=== PATIENT | male | born 1950 | race Caucasian/White ===

== ENCOUNTER 2016-12-22 13:33 | Inpatient (IN) | payer BC, OTHER ==
[~2016-12-22] VITALS: Ht 188 cm; Wt 92.8 kg
[2016-12-22 15:01] LABS: Basophils # (auto) 0 uL; Basophils % (auto) 0.2 % (0.0-2.0); Eosinophils # (auto) 0 uL; Eosinophils % (auto) 0.1 % (0.0-7.0); Hematocrit 39.1 % (41.0-53.0); Hemoglobin 12.6 g/dL (13.5-17.5); Lymphocytes # (auto) 0.9 uL; Lymphocytes % (auto) 4.8 % (10.0-50.0); Mean Corpuscular Hemoglobin 28.8 pg (28.0-32.0); Mean Corpuscular Hgb Conc. 32.2 g/dL (32.0-36.0); Mean Corpuscular Volume 89.5 fL (80.0-100.0); Mean Platelet Volume 6.3 fL (6.9-10.8); Monocytes # (auto) 2.4 uL; Neutrophils # (auto) 14.9 uL; Neutrophils % (auto) 81.9 % (37.0-80.0); Platelet Count (auto) 328 10^3/uL (140-450); Red Cell Distribution Width 19.4 % (11.8-14.3); White Blood Cell 18.2 10^3/uL (4.4-10.8)
[2016-12-22 15:25] LABS: Albumin 2.1 g/dL (3.4-5.0); Alkaline Phosphatase 72 U/L (45-117); Anion Gap 7 (5-15); Aspartate Aminotransferase 19 U/L (15-37); BUN/Creatinine Ratio 17.6; Bilirubin, Total 0.6 mg/dL (0.2-1.0); Blood Urea Nitrogen 16 mg/dL (7-18); Calcium 8.1 mg/dL (8.5-10.1); Carbon Dioxide 27 mmol/L (21-32); Chloride 96 mmol/L (98-107); GFR African American 108 mL/min; GFR Non-African American 89 mL/min; Glucose 111 mg/dL (74-106); Magnesium 2.3 mg/dL (1.6-2.6); Potassium 4.6 mmol/L (3.5-5.1); Sodium 130 mmol/L (136-145); Total Protein 6.4 g/dL (6.4-8.2)
[2016-12-22 15:26] LABS: B-Type Natriuretic Peptide 59.36 pg/mL (0-100)
[2016-12-22 15:28] LABS: Temperature: 21.9 C (20.0-25.0)
[2016-12-22 15:52] LABS: INR 1.47 (0.9-1.15); Partial Thromboplastin Time 44.4 sec (22.64-33.71); Prothrombin Time 16.1 sec (9.37-12.3)
[2016-12-22] MEDS ORDERED: SODIUM CHLORIDE 0.9% 1,000 ML IV ONE ×2 (16:45→17:00)
[2016-12-22] MEDS ORDERED: PROMETHAZINE HCL 25 MG/ML 1ML IV PRN (17:00)
[2016-12-22] MEDS ORDERED: VANCOMYCIN 1GM/250ML D5W 250 ML IV ONE (17:00)
[2016-12-22] MEDS ORDERED: LORazepam 0.5 MG TAB PO PRN (17:00)
[2016-12-22] MEDS ORDERED: TEMAZEPAM 15 MG CAP PO PRN (17:00)
[2016-12-22] MEDS ORDERED: VANCOMYCIN PER PHARMACY 0 MG IV SCH (17:00)
[2016-12-22] MEDS ORDERED: MORPHINE SULF INJ 2 MG/ML SYRINGE 1ML IV PRN ×2 (17:00)
[2016-12-22] MEDS ORDERED: ACETAMINOPHEN 500 MG TAB PO PRN (17:00)
[2016-12-22] MEDS ORDERED: NITROGLYCERIN 0.4 MG SL TAB SL PRN (17:00)
[2016-12-22 17:09] LABS: Urine Bilirubin Negative (Negative); Urine Blood Negative /uL (Negative); Urine Color Yellow (Yellow); Urine Glucose Normal (Normal); Urine Ketone Negative (Negative); Urine Mucus FEW (None Seen); Urine Nitrite Negative (Negative); Urine RBC 1 /hpf (0 - 3)
[2016-12-22] MEDS ORDERED: AZITHROMYCIN 500MG/D5W 250ML 250 ML IV ONE (17:45)
[2016-12-22] MEDS ORDERED: PIPERACILLIN-TAZOB 3.375GM 100 ML IV SCH (18:00)
[2016-12-22] MEDS ORDERED: PIPERACILLIN-TAZOB 3.375GM 100 ML IV ONE (18:00)
[2016-12-22] MEDS: SODIUM CHLORIDE 0.9% 1,000 ML IV SCH (18:30)
[2016-12-22] MEDS: VANCOMYCIN 1,500 MG in D5W 5% 250 ML IV SCH (19:00)
[2016-12-22] MEDS ORDERED: RIVAROXABAN 20 MG TAB PO SCH (19:08)
[2016-12-22 20:20] LABS: Anisocytosis Slight; Platelet Estimate Adequate
[2016-12-22] MEDS: ALBUTEROL SULF 2.5 MG/0.5ML(0.5%) NEB SOLN NEB SCH (20:20)
[2016-12-22] MEDS: IPRATROPIUM BROM 0.5 MG/2.5ML INH SOL NEB SCH ×2 (20:20→21:18)
[2016-12-22] MEDS: ALBUTEROL SULF 2.5 MG/0.5ML(0.5%) NEB SOLN NEB PRN (21:18)
[2016-12-22 23:44] VITALS: BP 95/57
[2016-12-23] MEDS: ALBUTEROL SULF 2.5 MG/0.5ML(0.5%) NEB SOLN NEB SCH ×4 (00:35→19:27)
[2016-12-23] MEDS: IPRATROPIUM BROM 0.5 MG/2.5ML INH SOL NEB SCH ×4 (00:35→19:28)
[2016-12-23] MEDS: SODIUM CHLORIDE 0.9% 1,000 ML IV SCH (02:54)
[2016-12-23 05:44] LABS: Basophils # (auto) 0 uL; Basophils % (auto) 0.1 % (0.0-2.0); Eosinophils # (auto) 0.1 uL; Eosinophils % (auto) 0.7 % (0.0-7.0); Hematocrit 35.4 % (41.0-53.0); Hemoglobin 11.6 g/dL (13.5-17.5); Lymphocytes % (auto) 6.6 % (10.0-50.0); Mean Corpuscular Hemoglobin 29.2 pg (28.0-32.0); Mean Corpuscular Hgb Conc. 32.8 g/dL (32.0-36.0); Mean Corpuscular Volume 88.8 fL (80.0-100.0); Mean Platelet Volume 6.2 fL (6.9-10.8); Monocytes # (auto) 1.9 uL; Monocytes % (auto) 12.9 % (0.0-12.0); Neutrophils # (auto) 11.8 uL; Neutrophils % (auto) 79.7 % (37.0-80.0); Platelet Count (auto) 316 10^3/uL (140-450); Red Cell Distribution Width 19.6 % (11.8-14.3); White Blood Cell 14.8 10^3/uL (4.4-10.8)
[2016-12-23 06:01] LABS: Albumin 1.8 g/dL (3.4-5.0); Calcium 8.1 mg/dL (8.5-10.1); Potassium 4.4 mmol/L (3.5-5.1)
[2016-12-23] MEDS: PIPERACILLIN-TAZOB 3.375GM 100 ML IV SCH ×3 (06:12→21:56)
[2016-12-23 06:14] LABS: Bilirubin, Total 0.5 mg/dL (0.2-1.0); Total Protein 5.9 g/dL (6.4-8.2)
[2016-12-23] MEDS ORDERED: AMIT25TA9 PO (06:43)
[2016-12-23] MEDS ORDERED: CLON1TAB3 PO (06:48)
[2016-12-23] MEDS ORDERED: ESCI20TA51 PO (06:48)
[2016-12-23] MEDS ORDERED: ESOM40CA39 PO (06:48)
[2016-12-23] MEDS ORDERED: MET25T PO (06:48)
[2016-12-23] MEDS ORDERED: LISI-646 PO (06:48)
[2016-12-23] MEDS ORDERED: RIVA20TA PO (06:48)
[2016-12-23] MEDS: VANCOMYCIN 1,500 MG in D5W 5% 250 ML IV SCH ×2 (07:30→18:22)
[2016-12-23] MEDS ORDERED: ENOXAPARIN SOD 40 MG/0.4 ML SYRINGE SC SCH (10:00)
[2016-12-23] MEDS: PANTOPRAZOLE 40 MG TAB PO SCH (10:00)
[2016-12-23 10:41] VITALS: BP 105/60
[2016-12-23] MEDS ORDERED: PNEUMOCOCCAL VACC POLYS 25 MCG/0.5 ML VIAL IM ONE (11:00)
[2016-12-23] MEDS ORDERED: SODIUM CHLORIDE 0.9% 1,000 ML IV ONE (11:00)
[2016-12-23] MEDS ORDERED: ENOXAPARIN SOD 100 MG/1 ML SYRINGE SC ONE (11:00)
[2016-12-23] MEDS ORDERED: guaiFENesin-COD 10 ML UD PO PRN (11:00)
[2016-12-23] MEDS ORDERED: guaiFENesin-COD 10 ML UD PO ONE (11:00)
[2016-12-23 11:15] VITALS: BP 105/60
[2016-12-23] MEDS ORDERED: LISINOPRIL 20 MG TAB PO ONE (11:15)
[2016-12-23] MEDS ORDERED: METOPROLOL SUCCINATE XL 50 MG TAB PO ONE (11:15)
[2016-12-23] MEDS ORDERED: IOHEXOL 350 MG/ML 100ML IJ ONE (11:25)
[2016-12-23] MEDS: guaiFENesin-DEXTROMETHORPHAN 5ML SYR GT PRN ×2 (12:16→18:36)
[2016-12-23] MEDS: AZITHROMYCIN 500MG/D5W 250ML 250 ML IV SCH (12:19)
[2016-12-23 17:01] VITALS: BP 119/64
[2016-12-23] MEDS: HYDROcodone-ACET 5/325MG TAB PO PRN (18:38)
[2016-12-23] MEDS: DOCUSATE SOD 100 MG CAP PO SCH (21:55)
[2016-12-23] MEDS: ENOXAPARIN SOD 100 MG/1 ML SYRINGE SC SCH (21:55)
[2016-12-23 22:00] VITALS: BP 105/70
[2016-12-23] MEDS: AMITRIPTYLINE HCL 25 MG TAB PO SCH (22:45)
[2016-12-23] MEDS: clonazePAM 0.5 MG TAB PO SCH (22:46)
[2016-12-24] MEDS: guaiFENesin-DEXTROMETHORPHAN 5ML SYR GT PRN (03:25)
[2016-12-24] MEDS: PIPERACILLIN-TAZOB 3.375GM 100 ML IV SCH ×4 (03:25→21:17)
[2016-12-24 05:00] VITALS: BP 113/75
[2016-12-24] MEDS: ALBUTEROL SULF 2.5 MG/0.5ML(0.5%) NEB SOLN NEB SCH ×4 (06:00→19:16)
[2016-12-24] MEDS: IPRATROPIUM BROM 0.5 MG/2.5ML INH SOL NEB SCH ×4 (06:00→19:16)
[2016-12-24 06:34] LABS: Basophils # (auto) 0 uL; Basophils % (auto) 0.3 % (0.0-2.0); Eosinophils # (auto) 0.3 uL; Eosinophils % (auto) 2.2 % (0.0-7.0); Hematocrit 34.5 % (41.0-53.0); Hemoglobin 11.2 g/dL (13.5-17.5); Lymphocytes # (auto) 0.8 uL; Lymphocytes % (auto) 6.2 % (10.0-50.0); Mean Corpuscular Hemoglobin 29.1 pg (28.0-32.0); Mean Corpuscular Hgb Conc. 32.4 g/dL (32.0-36.0); Mean Corpuscular Volume 89.6 fL (80.0-100.0); Mean Platelet Volume 6.4 fL (6.9-10.8); Monocytes # (auto) 1.5 uL; Monocytes % (auto) 11.7 % (0.0-12.0); Neutrophils # (auto) 10.2 uL; Neutrophils % (auto) 79.6 % (37.0-80.0); Platelet Count (auto) 320 10^3/uL (140-450); Red Cell Distribution Width 19.6 % (11.8-14.3); White Blood Cell 12.8 10^3/uL (4.4-10.8)
[2016-12-24 06:52] LABS: BUN/Creatinine Ratio 13.6; Calcium 7.9 mg/dL (8.5-10.1); Potassium 3.6 mmol/L (3.5-5.1)
[2016-12-24] MEDS: VANCOMYCIN 1,500 MG in D5W 5% 250 ML IV SCH ×2 (08:04→18:36)
[2016-12-24 08:57] VITALS: BP 115/71
[2016-12-24] MEDS: LISINOPRIL 20 MG TAB PO SCH (10:00)
[2016-12-24] MEDS: ENOXAPARIN SOD 100 MG/1 ML SYRINGE SC SCH ×2 (10:00→21:52)
[2016-12-24] MEDS: DOCUSATE SOD 100 MG CAP PO SCH ×2 (10:00→21:52)
[2016-12-24] MEDS: AZITHROMYCIN 500MG/D5W 250ML 250 ML IV SCH (10:00)
[2016-12-24] MEDS: clonazePAM 0.5 MG TAB PO SCH ×2 (10:00→21:52)
[2016-12-24] MEDS: PANTOPRAZOLE 40 MG TAB PO SCH (10:00)
[2016-12-24] MEDS: CITALOPRAM HYDROBR 20 MG TAB PO SCH (10:00)
[2016-12-24] MEDS: METOPROLOL SUCCINATE XL 50 MG TAB PO SCH (10:00)
[2016-12-24 10:23] LABS: Anisocytosis Slight; Platelet Estimate Adequate
[2016-12-24 12:42] VITALS: BP 124/75
[2016-12-24] MEDS ORDERED: ACETYLCYSTEINE 10 %(100MG/ML) SOL 4ML NEB SCH (14:00)
[2016-12-24 16:17] VITALS: BP 114/72
[2016-12-24] MEDS: ACETYLCYSTEINE 10 %(100MG/ML) SOL 4ML NEB SCH (19:16)
[2016-12-24] MEDS: AMITRIPTYLINE HCL 25 MG TAB PO SCH (21:52)
[2016-12-24 22:00] VITALS: BP 107/63
[2016-12-25] MEDS: ALBUTEROL SULF 2.5 MG/0.5ML(0.5%) NEB SOLN NEB SCH ×4 (00:07→19:30)
[2016-12-25] MEDS: IPRATROPIUM BROM 0.5 MG/2.5ML INH SOL NEB SCH ×4 (00:07→19:30)
[2016-12-25] MEDS: ACETYLCYSTEINE 10 %(100MG/ML) SOL 4ML NEB SCH ×4 (00:07→19:30)
[2016-12-25] MEDS: PIPERACILLIN-TAZOB 3.375GM 100 ML IV SCH ×4 (03:27→21:16)
[2016-12-25 05:00] VITALS: BP 136/62
[2016-12-25 05:55] LABS: Basophils # (auto) 0 uL; Basophils % (auto) 0.3 % (0.0-2.0); Eosinophils # (auto) 0.3 uL; Eosinophils % (auto) 2.7 % (0.0-7.0); Hematocrit 33.7 % (41.0-53.0); Hemoglobin 11.3 g/dL (13.5-17.5); Lymphocytes # (auto) 0.9 uL; Lymphocytes % (auto) 9.1 % (10.0-50.0); Mean Corpuscular Hgb Conc. 33.5 g/dL (32.0-36.0); Mean Corpuscular Volume 89.5 fL (80.0-100.0); Mean Platelet Volume 6.4 fL (6.9-10.8); Monocytes # (auto) 1.2 uL; Monocytes % (auto) 11.6 % (0.0-12.0); Neutrophils # (auto) 7.9 uL; Neutrophils % (auto) 76.3 % (37.0-80.0); Nucleated Red Blood Cells % 0.1 %; Platelet Count (auto) 351 10^3/uL (140-450); Red Cell Distribution Width 19.6 % (11.8-14.3); White Blood Cell 10.4 10^3/uL (4.4-10.8)
[2016-12-25 06:22] LABS: Calcium 8.3 mg/dL (8.5-10.1); Potassium 4.3 mmol/L (3.5-5.1)
[2016-12-25] MEDS: VANCOMYCIN 1,500 MG in D5W 5% 250 ML IV SCH ×2 (06:25→19:00)
[2016-12-25 06:26] LABS: BUN/Creatinine Ratio 11.8
[2016-12-25 08:39] LABS: Anisocytosis Slight; Platelet Estimate Adequate
[2016-12-25 09:00] VITALS: BP 115/69
[2016-12-25] MEDS: LISINOPRIL 20 MG TAB PO SCH (10:00)
[2016-12-25] MEDS: ENOXAPARIN SOD 100 MG/1 ML SYRINGE SC SCH ×2 (10:00→21:48)
[2016-12-25] MEDS: DOCUSATE SOD 100 MG CAP PO SCH ×2 (10:00→21:46)
[2016-12-25] MEDS: CITALOPRAM HYDROBR 20 MG TAB PO SCH (10:00)
[2016-12-25] MEDS: METOPROLOL SUCCINATE XL 50 MG TAB PO SCH (10:00)
[2016-12-25] MEDS: clonazePAM 0.5 MG TAB PO SCH ×2 (10:00→21:47)
[2016-12-25] MEDS: PANTOPRAZOLE 40 MG TAB PO SCH (10:00)
[2016-12-25] MEDS: HYDROcodone-ACET 5/325MG TAB PO PRN (12:30)
[2016-12-25 13:00] VITALS: BP 118/65
[2016-12-25 17:04] VITALS: BP 107/66
[2016-12-25] MEDS: guaiFENesin-COD 10 ML UD PO PRN (20:31)
[2016-12-25] MEDS: AMITRIPTYLINE HCL 25 MG TAB PO SCH (21:47)
[2016-12-25 22:00] VITALS: BP 124/67
[2016-12-26] MEDS: guaiFENesin-COD 10 ML UD PO PRN (00:32)
[2016-12-26] MEDS: ALBUTEROL SULF 2.5 MG/0.5ML(0.5%) NEB SOLN NEB SCH ×4 (00:40→18:50)
[2016-12-26] MEDS: IPRATROPIUM BROM 0.5 MG/2.5ML INH SOL NEB SCH ×4 (00:40→18:51)
[2016-12-26] MEDS: ACETYLCYSTEINE 10 %(100MG/ML) SOL 4ML NEB SCH ×4 (00:40→18:54)
[2016-12-26] MEDS: PIPERACILLIN-TAZOB 3.375GM 100 ML IV SCH ×4 (03:32→21:00)
[2016-12-26] MEDS: HYDROcodone-ACET 5/325MG TAB PO PRN ×2 (03:42→10:49)
[2016-12-26 03:45] VITALS: BP 124/67
[2016-12-26 05:05] VITALS: BP 115/62
[2016-12-26 06:38] LABS: Basophils # (auto) 0.1 uL; Basophils % (auto) 0.7 % (0.0-2.0); Eosinophils # (auto) 0.3 uL; Hematocrit 34.3 % (41.0-53.0); Hemoglobin 11.1 g/dL (13.5-17.5); Lymphocytes # (auto) 0.8 uL; Lymphocytes % (auto) 7.5 % (10.0-50.0); Mean Corpuscular Hemoglobin 28.7 pg (28.0-32.0); Mean Corpuscular Hgb Conc. 32.4 g/dL (32.0-36.0); Mean Corpuscular Volume 88.6 fL (80.0-100.0); Mean Platelet Volume 6.3 fL (6.9-10.8); Monocytes # (auto) 1.1 uL; Monocytes % (auto) 9.7 % (0.0-12.0); Neutrophils # (auto) 8.9 uL; Neutrophils % (auto) 79.1 % (37.0-80.0); Nucleated Red Blood Cells % 0.1 %; Platelet Count (auto) 389 10^3/uL (140-450); Red Cell Distribution Width 19.2 % (11.8-14.3); White Blood Cell 11.3 10^3/uL (4.4-10.8)
[2016-12-26] MEDS: VANCOMYCIN 1,500 MG in D5W 5% 250 ML IV SCH ×2 (06:41→19:00)
[2016-12-26 06:48] LABS: Potassium 3.8 mmol/L (3.5-5.1)
[2016-12-26 06:55] LABS: BUN/Creatinine Ratio 14.6; Calcium 8.6 mg/dL (8.5-10.1)
[2016-12-26 07:21] VITALS: BP 145/84
[2016-12-26] MEDS: clonazePAM 0.5 MG TAB PO SCH ×2 (10:00→22:00)
[2016-12-26] MEDS: ENOXAPARIN SOD 100 MG/1 ML SYRINGE SC SCH ×2 (10:00→22:00)
[2016-12-26] MEDS: CITALOPRAM HYDROBR 20 MG TAB PO SCH (10:00)
[2016-12-26] MEDS: LISINOPRIL 20 MG TAB PO SCH (10:00)
[2016-12-26] MEDS: PANTOPRAZOLE 40 MG TAB PO SCH (10:00)
[2016-12-26] MEDS: DOCUSATE SOD 100 MG CAP PO SCH ×2 (10:00→22:00)
[2016-12-26] MEDS: METOPROLOL SUCCINATE XL 50 MG TAB PO SCH (10:00)
[2016-12-26 10:14] LABS: Burr Cells FEW; Platelet Estimate Adequate
[2016-12-26 10:15] LABS: Anisocytosis Slight; Polychromasia Slight
[2016-12-26 11:53] VITALS: BP 133/73
[2016-12-26 17:13] VITALS: BP 124/73
[2016-12-26 22:00] VITALS: BP 127/71
[2016-12-26] MEDS: AMITRIPTYLINE HCL 25 MG TAB PO SCH (22:00)
[2016-12-27] MEDS: ALBUTEROL SULF 2.5 MG/0.5ML(0.5%) NEB SOLN NEB SCH ×4 (00:40→18:35)
[2016-12-27] MEDS: IPRATROPIUM BROM 0.5 MG/2.5ML INH SOL NEB SCH ×4 (00:40→18:35)
[2016-12-27] MEDS: PIPERACILLIN-TAZOB 3.375GM 100 ML IV SCH ×3 (02:52→16:02)
[2016-12-27] MEDS: ALBUTEROL SULF 2.5 MG/0.5ML(0.5%) NEB SOLN NEB PRN (04:49)
[2016-12-27 05:00] VITALS: BP 133/75
[2016-12-27] MEDS: VANCOMYCIN 1,500 MG in D5W 5% 250 ML IV SCH (06:20)
[2016-12-27] MEDS: ACETYLCYSTEINE 10 %(100MG/ML) SOL 4ML NEB SCH ×2 (06:55)
[2016-12-27] MEDS ORDERED: LORazepam 2MG/ML-1ML VIAL IV PRN (08:45)
[2016-12-27] MEDS ORDERED: MORPHINE SULF INJ 2 MG/ML SYRINGE 1ML IV PRN (08:45)
[2016-12-27] MEDS ORDERED: MORPHINE SULF INJ 2 MG/ML SYRINGE 1ML IV ONE (08:45)
[2016-12-27 09:00] VITALS: BP 111/56
[2016-12-27] MEDS: DOCUSATE SOD 100 MG CAP PO SCH ×2 (09:06→22:17)
[2016-12-27] MEDS: PANTOPRAZOLE 40 MG TAB PO SCH (09:08)
[2016-12-27] MEDS: METOPROLOL SUCCINATE XL 50 MG TAB PO SCH (09:08)
[2016-12-27] MEDS: clonazePAM 0.5 MG TAB PO SCH ×2 (09:08→22:16)
[2016-12-27] MEDS: CITALOPRAM HYDROBR 20 MG TAB PO SCH (09:09)
[2016-12-27] MEDS: LISINOPRIL 20 MG TAB PO SCH (09:09)
[2016-12-27] MEDS: ENOXAPARIN SOD 100 MG/1 ML SYRINGE SC SCH ×2 (09:10→22:17)
[2016-12-27 13:00] VITALS: BP 123/66
[2016-12-27] MEDS: MORPHINE SULF INJ 2 MG/ML SYRINGE 1ML IV PRN ×3 (14:08→22:17)
[2016-12-27 17:00] VITALS: BP 123/50
[2016-12-27] MEDS ORDERED: LEVOFLOXACIN 750MG 150 ML IV ONE (17:45)
[2016-12-27] MEDS: PRO-STAT 64 30ML PO SCH (18:00)
[2016-12-27] MEDS: guaiFENesin-COD 10 ML UD PO PRN (18:36)
[2016-12-27 22:00] VITALS: BP 117/69
[2016-12-27] MEDS: AMITRIPTYLINE HCL 25 MG TAB PO SCH (22:16)
[2016-12-28 04:56] VITALS: BP 111/72
[2016-12-28] MEDS: ALBUTEROL SULF 2.5 MG/0.5ML(0.5%) NEB SOLN NEB SCH ×3 (06:27→12:18)
[2016-12-28] MEDS: IPRATROPIUM BROM 0.5 MG/2.5ML INH SOL NEB SCH ×3 (06:27→12:18)
[2016-12-28] MEDS: PRO-STAT 64 30ML PO SCH (08:00)
[2016-12-28] MEDS: MORPHINE SULF INJ 2 MG/ML SYRINGE 1ML IV PRN ×2 (08:10→12:53)
[2016-12-28 08:30] VITALS: BP 121/84
[2016-12-28] MEDS ORDERED: LEVO750T64 PO (08:55)
[2016-12-28] MEDS: clonazePAM 0.5 MG TAB PO SCH (09:09)
[2016-12-28] MEDS: ENOXAPARIN SOD 100 MG/1 ML SYRINGE SC SCH (09:09)
[2016-12-28] MEDS: DOCUSATE SOD 100 MG CAP PO SCH (09:10)
[2016-12-28] MEDS: LISINOPRIL 20 MG TAB PO SCH (09:10)
[2016-12-28] MEDS: PANTOPRAZOLE 40 MG TAB PO SCH (09:10)
[2016-12-28] MEDS: METOPROLOL SUCCINATE XL 50 MG TAB PO SCH (09:11)
[2016-12-28] MEDS: CITALOPRAM HYDROBR 20 MG TAB PO SCH (09:11)
[2016-12-28] MEDS ORDERED: LEVOFLOXACIN 750MG 150 ML IV SCH (10:00)
[2016-12-28 11:51] VITALS: BP 121/84
[2016-12-28 12:37] VITALS: BP 127/71
== END 2016-12-28 15:00 | disposition hospice, home (50) | DRG 189 ==
LOC: ER 13:33 → TELE 13:34 → TELE-WESTW 12-23 08:01 → WEST WING 12-27 17:07
PROVIDERS: ADMIT Internal Medicine; ATTEND Internal Medicine
DX: J96.00 Acute respiratory failure, unspecified whether with hypoxia or hypercapnia (principal); J18.9 Pneumonia, unspecified organism; C41.9 Malignant neoplasm of bone and articular cartilage, unspecified; I82.402 Acute embolism and thrombosis of unspecified deep veins of left lower extremity; C78.00 Secondary malignant neoplasm of unspecified lung; E87.1 Hypo-osmolality and hyponatremia; J98.11 Atelectasis; I10 Essential (primary) hypertension; Z23 Encounter for immunization; F32.9 Major depressive disorder, single episode, unspecified; F41.9 Anxiety disorder, unspecified; I25.10 Atherosclerotic heart disease of native coronary artery without angina pectoris; Z66 Do not resuscitate; Z79.01 Long term (current) use of anticoagulants; Z85.830 Personal history of malignant neoplasm of bone; Z85.831 Personal history of malignant neoplasm of soft tissue; Z86.718 Personal history of other venous thrombosis and embolism; Z86.711 Personal history of pulmonary embolism; Z98.84 Bariatric surgery status; Z82.49 Family history of ischemic heart disease and other diseases of the circulatory system; Z90.49 Acquired absence of other specified parts of digestive tract
CPT/HCPCS: 36415; 71010; 71260; 74177; 80048; 80053; 80202; 81001; 83735; 83880; 84484; 85025; 85379; 85610; 85730; 87040; 87070; 87205; 93005; 93970; 94640; 94761; 96365; 96367; J1956; J2543; J7060